=== PATIENT | male | born 1945 | race Caucasian/White ===

== ENCOUNTER 2018-03-07 21:53 | Inpatient (IN) | payer OTHER ==
[~2018-03-07] VITALS: Ht 167.6 cm; Wt 61.7 kg
[2018-03-08] MEDS ORDERED: MAG HYDROX/AL HYDROX/SIMETH 30 ML UDC PO PRN
[2018-03-08] MEDS ORDERED: MAGNESIUM HYDROXIDE 30 ML UDC PO PRN
[2018-03-08] MEDS ORDERED: ACETAMINOPHEN 325 MG TABLET PO PRN
[2018-03-08] MEDS ORDERED: LORAZEPAM 0.5 MG TABLET PO PRN
[2018-03-08] MEDS ORDERED: HYDR-552 PO (00:56)
[2018-03-08 01:48] VITALS: BP 120/76
[2018-03-08] MEDS ORDERED: FERR325T23 (02:09)
[2018-03-08] MEDS ORDERED: GABA-532 (02:09)
[2018-03-08] MEDS ORDERED: GLIP5TAB13 (02:09)
[2018-03-08] MEDS ORDERED: ATEN100T (02:09)
[2018-03-08] MEDS ORDERED: FLUO-120 (02:09)
[2018-03-08] MEDS ORDERED: BENA40TA2 (02:09)
[2018-03-08] MEDS ORDERED: HYDR-3972 (02:09)
[2018-03-08] MEDS ORDERED: IBUP-1957 (02:09)
[2018-03-08] MEDS ORDERED: GEMF600T3 (02:09)
[2018-03-08] MEDS ORDERED: DILT180C53 (02:09)
[2018-03-08] MEDS ORDERED: OMEP40CA37 (02:09)
[2018-03-08] MEDS ORDERED: COLC0.6T67 (02:09)
[2018-03-08] MEDS ORDERED: WARF-68 (02:09)
[2018-03-08] MEDS ORDERED: FERR325T29 (02:09)
[2018-03-08] MEDS ORDERED: INSULIN REGULAR, HUMAN 100 UNIT/ML 3 ML VIAL SQ PRN ×2 (02:30→10:00)
[2018-03-08] MEDS ORDERED: DEXTROSE 50%-WATER 50 ML DISP.SYRIN IV PRN ×2 (02:30→10:00)
[2018-03-08] MEDS ORDERED: IBUPROFEN 800 MG TABLET PO PRN (02:30)
[2018-03-08] MEDS: HYDROCODONE/APAP 5/325MG 1 EACH TABLET PO PRN ×2 (03:06→18:27)
[2018-03-08 08:00] VITALS: BP 151/84
[2018-03-08] MEDS: BLOOD SUGAR DIAGNOSTIC 1 EACH STRIP IN SCH ×5 (08:01→21:41)
[2018-03-08] MEDS: IBUPROFEN 400 MG TABLET PO PRN ×2 (08:46→20:56)
[2018-03-08] MEDS ORDERED: HYDROCODONE/APAP 5/325MG 1 EACH TABLET PO PRN (09:30)
[2018-03-08] MEDS ORDERED: *INSULIN REGULAR(HUMULIN R)HUM 100 UNIT/ML VIAL SQ PRN (10:00)
[2018-03-08] MEDS: DILTIAZEM HCL CD 180 MG PO SCH ×2 (10:28→10:30)
[2018-03-08] MEDS: BLOOD SUGAR DIAGNOSTIC 1 EACH STRIP VI SCH ×4 (12:00→21:43)
[2018-03-08 15:58] VITALS: BP 131/85
[2018-03-08] MEDS: GEMFIBROZIL 600 MG TABLET PO SCH (17:43)
[2018-03-08 20:14] VITALS: BP 103/68
[2018-03-08] MEDS: MIRTAZAPINE 15 MG TABLET PO SCH (21:27)
[2018-03-08 22:35] LABS: INR 1.03 (0.87-1.13)
[2018-03-08] MEDS: TEMAZEPAM 7.5 MG CAPSULE PO PRN (23:59)
[2018-03-09 06:53] LABS: INR 1.03 (0.87-1.13)
[2018-03-09 08:00] VITALS: BP 131/70
[2018-03-09] MEDS: PANTOPRAZOLE 40 MG TABLET.DR PO SCH (08:15)
[2018-03-09] MEDS: GEMFIBROZIL 600 MG TABLET PO SCH ×2 (08:15→17:00)
[2018-03-09] MEDS: IBUPROFEN 400 MG TABLET PO PRN ×2 (08:15→20:42)
[2018-03-09] MEDS: DILTIAZEM HCL CD 180 MG PO SCH (08:16)
[2018-03-09] MEDS: BLOOD SUGAR DIAGNOSTIC 1 EACH STRIP IN SCH (08:17)
[2018-03-09] MEDS: GABAPENTIN 100 MG CAPSULE PO SCH (08:49)
[2018-03-09] MEDS: FERROUS SULFATE (325 MG) 325 MG/TAB TABLET PO SCH (08:49)
[2018-03-09] MEDS: BENAZEPRIL HCL 20 MG TABLET PO SCH (08:49)
[2018-03-09] MEDS: ATENOLOL 50 MG TABLET PO SCH (08:49)
[2018-03-09] MEDS: BLOOD SUGAR DIAGNOSTIC 1 EACH STRIP VI SCH ×4 (10:02→21:44)
[2018-03-09] MEDS: INSULIN REGULAR, HUMAN 100 UNIT/ML 3 ML VIAL SQ PRN (14:12)
[2018-03-09] MEDS ORDERED: WARFARIN SODIUM 5 MG TABLET PO SCH (17:00)
[2018-03-09] MEDS ORDERED: WARFARIN SODIUM 2 MG TABLET PO SCH (17:00)
[2018-03-09 20:53] VITALS: BP 128/69
[2018-03-09] MEDS: MIRTAZAPINE 15 MG TABLET PO SCH (21:00)
[2018-03-09] MEDS: TEMAZEPAM 7.5 MG CAPSULE PO PRN (21:45)
[2018-03-10 07:13] LABS: INR 0.99 (0.87-1.13)
[2018-03-10 08:00] VITALS: BP 129/76
[2018-03-10] MEDS: BLOOD SUGAR DIAGNOSTIC 1 EACH STRIP VI SCH ×4 (08:04→21:19)
[2018-03-10] MEDS: DILTIAZEM HCL CD 180 MG PO SCH (08:46)
[2018-03-10] MEDS: GABAPENTIN 100 MG CAPSULE PO SCH (08:47)
[2018-03-10] MEDS: ATENOLOL 50 MG TABLET PO SCH (08:47)
[2018-03-10] MEDS: GEMFIBROZIL 600 MG TABLET PO SCH ×2 (08:47→17:00)
[2018-03-10] MEDS: FERROUS SULFATE (325 MG) 325 MG/TAB TABLET PO SCH (08:48)
[2018-03-10] MEDS: BENAZEPRIL HCL 20 MG TABLET PO SCH (08:48)
[2018-03-10] MEDS: PANTOPRAZOLE 40 MG TABLET.DR PO SCH (08:48)
[2018-03-10 16:00] VITALS: BP 130/68
[2018-03-10] MEDS: WARFARIN SODIUM 2 MG TABLET PO SCH (17:00)
[2018-03-10] MEDS: MIRTAZAPINE 15 MG TABLET PO SCH (21:08)
[2018-03-10] MEDS: IBUPROFEN 400 MG TABLET PO PRN (21:27)
[2018-03-11] MEDS: PANTOPRAZOLE 40 MG TABLET.DR PO SCH (07:30)
[2018-03-11 08:00] VITALS: BP 118/68
[2018-03-11] MEDS: FERROUS SULFATE (325 MG) 325 MG/TAB TABLET PO SCH (08:46)
[2018-03-11] MEDS: DILTIAZEM HCL CD 180 MG PO SCH (08:46)
[2018-03-11] MEDS: GEMFIBROZIL 600 MG TABLET PO SCH ×2 (08:46→16:50)
[2018-03-11] MEDS: BENAZEPRIL HCL 20 MG TABLET PO SCH (08:46)
[2018-03-11] MEDS: GABAPENTIN 100 MG CAPSULE PO SCH (08:47)
[2018-03-11] MEDS: ATENOLOL 50 MG TABLET PO SCH (08:47)
[2018-03-11] MEDS: BLOOD SUGAR DIAGNOSTIC 1 EACH STRIP VI SCH ×4 (08:48→21:42)
[2018-03-11] MEDS: IBUPROFEN 400 MG TABLET PO PRN (12:30)
[2018-03-11] MEDS: WARFARIN SODIUM 2 MG TABLET PO SCH (16:50)
[2018-03-11 17:00] VITALS: BP 143/83
[2018-03-11] MEDS: risperiDONE 1 MG TABLET PO SCH (17:00)
[2018-03-11] MEDS: MIRTAZAPINE 15 MG TABLET PO SCH (21:41)
[2018-03-12] MEDS: BLOOD SUGAR DIAGNOSTIC 1 EACH STRIP VI SCH ×4 (07:30→22:01)
[2018-03-12] MEDS: PANTOPRAZOLE 40 MG TABLET.DR PO SCH (07:30)
[2018-03-12 08:00] VITALS: BP 127/65
[2018-03-12 08:22] LABS: INR 1.02 (0.87-1.13)
[2018-03-12] MEDS: GABAPENTIN 100 MG CAPSULE PO SCH (09:00)
[2018-03-12] MEDS: risperiDONE 1 MG TABLET PO SCH ×2 (09:00→16:47)
[2018-03-12] MEDS: GEMFIBROZIL 600 MG TABLET PO SCH ×2 (09:00→16:47)
[2018-03-12] MEDS: FERROUS SULFATE (325 MG) 325 MG/TAB TABLET PO SCH (09:00)
[2018-03-12] MEDS: BENAZEPRIL HCL 20 MG TABLET PO SCH (09:00)
[2018-03-12] MEDS: ATENOLOL 50 MG TABLET PO SCH (09:01)
[2018-03-12] MEDS: DILTIAZEM HCL CD 180 MG PO SCH (09:01)
[2018-03-12] MEDS: IBUPROFEN 400 MG TABLET PO PRN (09:07)
[2018-03-12] MEDS: HYDROCODONE/APAP 5/325MG 1 EACH TABLET PO PRN ×2 (13:02→18:50)
[2018-03-12 16:00] VITALS: BP 130/63
[2018-03-12] MEDS: WARFARIN SODIUM 2 MG TABLET PO SCH (16:47)
[2018-03-12 20:00] VITALS: BP 122/76
[2018-03-12] MEDS: MIRTAZAPINE 15 MG TABLET PO SCH (22:00)
[2018-03-12] MEDS: TEMAZEPAM 7.5 MG CAPSULE PO PRN (22:09)
[2018-03-13 07:17] LABS: INR 1.01 (0.87-1.13)
[2018-03-13] MEDS: BLOOD SUGAR DIAGNOSTIC 1 EACH STRIP VI SCH ×4 (07:30→21:28)
[2018-03-13 08:00] VITALS: BP 119/65
[2018-03-13] MEDS: IBUPROFEN 400 MG TABLET PO PRN (08:57)
[2018-03-13] MEDS: GEMFIBROZIL 600 MG TABLET PO SCH ×2 (08:57→16:47)
[2018-03-13] MEDS: FERROUS SULFATE (325 MG) 325 MG/TAB TABLET PO SCH (08:58)
[2018-03-13] MEDS: PANTOPRAZOLE 40 MG TABLET.DR PO SCH (08:58)
[2018-03-13] MEDS: GABAPENTIN 100 MG CAPSULE PO SCH (08:59)
[2018-03-13] MEDS: risperiDONE 1 MG TABLET PO SCH ×2 (09:00→16:44)
[2018-03-13] MEDS: DILTIAZEM HCL CD 180 MG PO SCH (09:11)
[2018-03-13] MEDS: BENAZEPRIL HCL 20 MG TABLET PO SCH (09:12)
[2018-03-13] MEDS: ATENOLOL 50 MG TABLET PO SCH (09:12)
[2018-03-13 16:00] VITALS: BP 102/55
[2018-03-13] MEDS: WARFARIN SODIUM 2 MG TABLET PO SCH (16:47)
[2018-03-13] MEDS: HYDROCODONE/APAP 5/325MG 1 EACH TABLET PO PRN (16:51)
[2018-03-13 20:00] VITALS: BP 112/66
[2018-03-13] MEDS: MIRTAZAPINE 15 MG TABLET PO SCH (21:25)
[2018-03-13] MEDS: TEMAZEPAM 7.5 MG CAPSULE PO PRN (23:21)
[2018-03-14 07:20] LABS: INR 1.03 (0.87-1.13)
[2018-03-14] MEDS: PANTOPRAZOLE 40 MG TABLET.DR PO SCH (08:24)
[2018-03-14] MEDS: BENAZEPRIL HCL 20 MG TABLET PO SCH (08:24)
[2018-03-14] MEDS: FERROUS SULFATE (325 MG) 325 MG/TAB TABLET PO SCH (08:24)
[2018-03-14] MEDS: GEMFIBROZIL 600 MG TABLET PO SCH ×2 (08:24→17:10)
[2018-03-14] MEDS: DILTIAZEM HCL CD 180 MG PO SCH (08:25)
[2018-03-14] MEDS: GABAPENTIN 100 MG CAPSULE PO SCH (08:25)
[2018-03-14] MEDS: BLOOD SUGAR DIAGNOSTIC 1 EACH STRIP VI SCH ×4 (08:25→21:01)
[2018-03-14] MEDS: risperiDONE 1 MG TABLET PO SCH ×2 (08:25→17:10)
[2018-03-14] MEDS: ATENOLOL 50 MG TABLET PO SCH (08:25)
[2018-03-14] MEDS: INSULIN REGULAR, HUMAN 100 UNIT/ML 3 ML VIAL SQ PRN (11:49)
[2018-03-14 16:00] VITALS: BP 116/65
[2018-03-14] MEDS: WARFARIN SODIUM 2 MG TABLET PO SCH (17:11)
[2018-03-14 20:00] VITALS: BP 119/78
[2018-03-14] MEDS: TEMAZEPAM 7.5 MG CAPSULE PO PRN (21:23)
[2018-03-14] MEDS: MIRTAZAPINE 15 MG TABLET PO SCH (21:23)
[2018-03-15] MEDS: BLOOD SUGAR DIAGNOSTIC 1 EACH STRIP VI SCH ×4 (07:30→21:30)
[2018-03-15 08:00] VITALS: BP_SYST 100; BP_SYST 163; BP_DIAS 121; BP_DIAS 66
[2018-03-15] MEDS: GEMFIBROZIL 600 MG TABLET PO SCH ×2 (08:34→17:35)
[2018-03-15] MEDS: DILTIAZEM HCL CD 180 MG PO SCH (08:34)
[2018-03-15] MEDS: BENAZEPRIL HCL 20 MG TABLET PO SCH (08:35)
[2018-03-15] MEDS: PANTOPRAZOLE 40 MG TABLET.DR PO SCH (08:35)
[2018-03-15] MEDS: FERROUS SULFATE (325 MG) 325 MG/TAB TABLET PO SCH (08:36)
[2018-03-15] MEDS: risperiDONE 1 MG TABLET PO SCH ×3 (08:37→17:36)
[2018-03-15] MEDS: GABAPENTIN 100 MG CAPSULE PO SCH (08:46)
[2018-03-15] MEDS: ATENOLOL 50 MG TABLET PO SCH (08:48)
[2018-03-15] MEDS: INSULIN REGULAR, HUMAN 100 UNIT/ML 3 ML VIAL SQ PRN (12:45)
[2018-03-15 16:00] VITALS: BP 131/84
[2018-03-15] MEDS: WARFARIN SODIUM 2 MG TABLET PO SCH (17:44)
[2018-03-15 20:04] VITALS: BP 119/84
[2018-03-15] MEDS: MIRTAZAPINE 15 MG TABLET PO SCH (21:30)
[2018-03-15] MEDS: TEMAZEPAM 7.5 MG CAPSULE PO PRN (21:30)
[2018-03-16 07:11] LABS: INR 1.21 (0.87-1.13)
[2018-03-16] MEDS: BLOOD SUGAR DIAGNOSTIC 1 EACH STRIP VI SCH ×4 (07:30→17:30)
[2018-03-16 08:00] VITALS: BP 103/57
[2018-03-16] MEDS: risperiDONE 1 MG TABLET PO SCH ×3 (08:42→16:36)
[2018-03-16] MEDS: ATENOLOL 50 MG TABLET PO SCH (08:42)
[2018-03-16] MEDS: IBUPROFEN 400 MG TABLET PO PRN (08:42)
[2018-03-16] MEDS: DILTIAZEM HCL CD 180 MG PO SCH (08:43)
[2018-03-16] MEDS: GABAPENTIN 100 MG CAPSULE PO SCH (08:43)
[2018-03-16] MEDS: PANTOPRAZOLE 40 MG TABLET.DR PO SCH (08:43)
[2018-03-16] MEDS: FERROUS SULFATE (325 MG) 325 MG/TAB TABLET PO SCH (08:43)
[2018-03-16] MEDS: GEMFIBROZIL 600 MG TABLET PO SCH ×2 (08:43→16:36)
[2018-03-16] MEDS: BENAZEPRIL HCL 20 MG TABLET PO SCH (08:44)
[2018-03-16 16:00] VITALS: BP 123/63
[2018-03-16] MEDS: WARFARIN SODIUM 2 MG TABLET PO SCH (16:36)
== END 2018-03-16 22:26 | disposition home or self-care (01) | DRG 885 ==
LOC: GPS 23:38
PROVIDERS: ADMIT Psychiatry & Neurology Psychiatry; ATTEND Internal Medicine
DX: F33.3 Major depressive disorder, recurrent, severe with psychotic symptoms (principal); E11.65 Type 2 diabetes mellitus with hyperglycemia; G93.41 Metabolic encephalopathy; F23 Brief psychotic disorder; R45.851 Suicidal ideations; I10 Essential (primary) hypertension; D50.9 Iron deficiency anemia, unspecified; F41.9 Anxiety disorder, unspecified; I48.0 Paroxysmal atrial fibrillation; Z79.01 Long term (current) use of anticoagulants; R79.1 Abnormal coagulation profile; M10.9 Gout, unspecified; F32.9 Major depressive disorder, single episode, unspecified; Z73.6 Limitation of activities due to disability; Z91.14 Patient's other noncompliance with medication regimen; Z79.84 Long term (current) use of oral hypoglycemic drugs
CPT/HCPCS: 36415; 82962-TC; 84550-TC; 85610-TC; 87081-TC; A6402; J1815